=== PATIENT | female | born 1970 | race Caucasian/White ===

== ENCOUNTER 2019-04-19 21:51 | Emergency (ER) | payer MEDICAID ==
[~2019-04-19] VITALS: Ht 177.8 cm; Wt 56.0 kg
[2019-04-19 22:17] VITALS: BP 110/74
--- NOTE | 2019-04-19 23:32 | NUR ---
PT ELOPED, UPRIGHT STEADY GAIT. DR. TREJO AWARE.
== END 2019-04-19 23:35 | disposition left against medical advice (07) ==
LOC: ED 23:05
DX: J02.0 Streptococcal pharyngitis (principal); F17.200 Nicotine dependence, unspecified, uncomplicated
CPT/HCPCS: 99283